=== PATIENT | male | born 1985 | race Two or more races ===

== ENCOUNTER 2022-01-19 09:33 | Emergency (ER) | payer OTHER ==
[~2022-01-19] VITALS: Ht 180.3 cm; Wt 86.2 kg
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
--- NOTE | 2022-01-19 09:42 | NUR ---
PT FINGER BEING CLEANED WITH IODINE AND SALINE.
[2022-01-19] MEDS ORDERED: LIDOCAINE 1% INJ 50 ML MDV IJ ONE (09:51)
[2022-01-19] MEDS: LIDOCAINE HCL/PF 1% 30 ML VIAL TP ONE (10:01)
--- NOTE | 2022-01-19 10:01 | NUR ---
FINGER BEING SUTURED
[2022-01-19] MEDS ORDERED: TDAP [DIPH/PERTUSSIS/TET] 0.5 ML VIAL IM ONE (10:02)
[2022-01-19] MEDS: TDAP [DIPH/PERTUSSIS/TET] 0.5 ML VIAL IM ONE (10:20)
--- NOTE | 2022-01-19 10:27 | NUR ---
Patient discharged to home in stable condition. Written and verbal after care instructions given. Patient verbalizes understanding of instruction.
[2022-01-19 10:34] VITALS: BP 113/68
== END 2022-01-19 10:30 | disposition home or self-care (01) ==
LOC: ER 09:38
DX: S61.411A Laceration without foreign body of right hand, initial encounter (principal); W31.2XXA Contact with powered woodworking and forming machines, initial encounter; Y93.89 Activity, other specified; Y92.89 Other specified places as the place of occurrence of the external cause; Y99.8 Other external cause status
CPT/HCPCS: 12001; 90471; 90715; 99283; J3490 ×2

== ENCOUNTER 2022-01-21 17:11 | Emergency (ER) | payer OTHER ==
[~2022-01-21] VITALS: Ht 154.9 cm; Wt 86.2 kg
[2022-01-21 17:19] VITALS: BP 133/95
--- NOTE | 2022-01-21 17:32 | NUR ---
SEEN BY ER PROVIDER. SUTURE INTACT. NO S/S OF INFECTION NOTED. D/C HOME IIN STABLE CONDITION.
== END 2022-01-21 17:33 | disposition home or self-care (01) ==
LOC: ER 17:12
DX: S61.211D Laceration without foreign body of left index finger without damage to nail, subsequent encounter (principal); X58.XXXD Exposure to other specified factors, subsequent encounter